=== PATIENT | male | born 1985 | race Caucasian/White ===

== ENCOUNTER 2023-12-02 13:44 | Outpatient (REF) | payer OTHER, SELFPAY ==
[2023-12-02 15:06] LABS: Alanine Aminotransferase 30 U/L (0-40); Albumin Level 4.6 g/dL (3.5-5.0); Alkaline Phosphatase 107 U/L (39-117); Anion Gap 10 (12-20); Aspartate Amino Transferase 22 U/L (5-37); Bilirubin Total 0.6 mg/dL (0.0-1.0); Blood Urea Nitrogen 19 mg/dL (9-16); Calcium 9.4 mg/dL (8.4-10.2); Carbon Dioxide 28 mmol/L (22-29); Chloride 108 mmol/L (96-108); Cholesterol 189 mg/dL (<200); Estimated Glomerular Filt Rate > 60; Glucose Random 91 mg/dL (60-115); HDL Cholesterol 29 mg/dL (>40); LDL Cholesterol Calculated 135 mg/dL (<100); Potassium 4.1 mmol/L (3.3-5.1); Sodium 142 mmol/L (135-145); Total Protein 7.3 g/dL (6.5-8.0); Triglycerides 129 mg/dL (<150)
[2023-12-02 15:22] LABS: Thyroid Stimulating Hormone 1.66 uIU/mL (0.32-4.0)
== END 2023-12-02 13:45 | disposition home or self-care (01) ==
LOC: HO.LAB 13:44
PROVIDERS: PCP Internal Medicine; Visit Provider Internal Medicine
DX: Z00.00 Encounter for general adult medical examination without abnormal findings (principal); E78.00 Pure hypercholesterolemia, unspecified; F31.9 Bipolar disorder, unspecified; K64.8 Other hemorrhoids; R07.89 Other chest pain
CPT/HCPCS: 36415; 80053; 80061; 84443

== ENCOUNTER → 2023-12-24 14:40 | Outpatient (BNVA) | payer OTHER, SELFPAY | PROVIDERS: PCP Internal Medicine; Referring Provider Internal Medicine; Visit Provider Surgery ==

== ENCOUNTER 2024-01-14 15:49 | Outpatient (AMB) | payer OTHER, SELFPAY ==
[2024-01-14 15:52] VITALS: BMI 31.4
--- NOTE | 2024-01-14 15:52 | MHC.OFFVIS ---
Vital Signs 01/14/24 15:52 Height 5 ft 11 in Weight 225 lb 2 oz BMI 31.4 Intake Visit Reasons: Hemorrhoids Intake Note: This patient presents for hemorrhoids assessment. Pt c/o; reports rectal pain. Certification Officer Required: No Accompanied by: Spouse Allergies No Known Allergies Allergy (Verified 01/14/24 15:57) Medication List - Last Reconciled 01/14/24 by Carlos Garcia MD dextroamphetamine-amphetamine 10 mg 1 tab PO BID lamotrigine 200 mg PO BID sertraline 25 mg PO DAILY HPI HPI Hemorrhoids: Details: 38-year-old male referred for hemorrhoid issues. He actually describes a lot of itching around his anus with burning pain especially after bowel movements. He says that he subconsciously scratches the area a lot and this causes more pain. Sometimes he says this would bleed because of his scratching. He has had this problem for over a year. He denies any constipation. He says that he has in good health overall. [facility] Medical History (Updated 01/14/24 @ 16:12 by Carlos Garcia MD) Pruritus ani Surgical History No pertinent past surgical history Family History Other Breast cancer Colon cancer Social History Alcohol intake: current Alcohol intake frequency: a few times a month Substance Use Type: Marijuana Review of Systems Const Denies chills and Denies fever(s) Card Denies chest pain, Denies dyspnea and Denies dyspnea on exertion Resp Denies cough, Denies dyspnea and Denies dyspnea on exertion GI Denies hematochezia and Denies change in bowel habits Denies hematuria and Denies difficulty urinating Musc Denies back pain and Denies limited range of motion Neuro Denies focal weakness and Denies convulsions Psych Denies depression and Denies mood swings Physical Exam Vital Signs: BMI result Body Mass Index 31.4 Const General: comfortable and no acute distress Orientation/consciousness: patient oriented x3 Neck Neck: Yes no lymphadenopathy Resp Auscultation: clear to auscultation bilaterally Cardio Rhythm: regular rhythm GI Other: Rectal exam shows some mild diffuse dermatitic changes around the anal orifice Palpation (GI): Soft to palpation, nontender and no guarding Neuro General: patient oriented x3 Office Procedures Anoscopy He was in david-knife position. The anoscope was gently inserted. A full examination of the entire anal canal was done. He did have some internal external hemorrhoids which were non bulky. There were no lesions seen in the anal canal. There was no fissure ulceration. There was no induration on digital exam. There was no bleeding. [id number] Assessment & Plan Assessment & Plan (1) Pruritus ani: Code(s): L29.0 - Pruritus ani Category: Medical Plan: He has what he describes as severe itching and burning around his anus. This is consistent with pruritus anal with uncertain etiology I am going to prescribe him Calmoseptine for symptomatic relief. I told him as well that often times, high sugars as well as heavy caffeine intake can worsen this. I advised him to try to avoid scratching the area as this tends to fuel the cycle of itching and scratching and skin irritation. I told him to come back to the office if he does not notice any improvement in a month or 2. He was comfortable with the plan. His was with him during the visit. Coding Level of Care Code New Pt Level 3 (64942) Diagnoses Pruritus ani L29.0 CPT Codes Details - CPT: 53778-[id number] ([id number])
== END 2024-01-14 16:10 | disposition home or self-care (01) ==
PROVIDERS: PCP Internal Medicine; Visit Provider Surgery
DX: L29.0 Pruritus ani (principal)
CPT/HCPCS: 46600; 99203

== ENCOUNTER → 2024-01-14 15:49 | Outpatient (BNVA) | payer OTHER, SELFPAY | PROVIDERS: PCP Internal Medicine; Visit Provider Surgery | DX: L29.0 Pruritus ani (principal); K64.9 Unspecified hemorrhoids | CPT/HCPCS: 46600; 99202 ==